=== PATIENT | male | born 1980 | race Caucasian/White ===

== ENCOUNTER 2020-01-31 00:41 | Emergency (ER) | payer OTHER, SELFPAY ==
--- NOTE | ~2020-01-31 | XR_ITS ---
EXAMINATION: XR foot RT min 3V EXAM DATE: 01/31/2020 01:43 INDICATION: No known recent injury provided at this time. Pain of the right foot. TECHNIQUE: Right foot dorsoplantar, lateral and oblique projections obtained and reviewed. There is no prior study for comparison. FINDINGS: Right metatarsal bones unremarkable. Mild hallux valgus. No evidence of metatarsal stress fracture. There are no acute fractures or dislocations identified. There is no subcutaneous gas. T he soft tissue is unremarkable. There are no radiopaque foreign bodies. IMPRESSION: Mild right hallux valgus. Reviewed, dictated and finalized at location A. IMPRESSION: Mild right hallux valgus.
--- NOTE | ~2020-01-31 | XR_ITS ---
EXAMINATION: XR knee RT min 4V EXAM DATE: 01/31/2020 01:44 INDICATION: Fall, right knee pain. TECHNIQUE: Right knee frontal, crosstable lateral, orthogonal oblique projections for interpretation . Comparison is made to prior examination from 09/29/2015. FINDINGS: No evidence osteochondral defect or joint body in the right knee joint. There is no suprap atellar joint effusion. There are no acute fractures or dislocations identified. There is no subcuta neous gas. The soft tissue unremarkable. There are no radiopaque foreign bodies. IMPRESSION: Unremarkable right knee exam. Reviewed, dictated and finalized at location A.
[2020-01-31 00:48] VITALS: BP 174/80; PULSE 76; RESP 18; TEMP 36.6; O2SAT 99
--- NOTE | 2020-01-31 01:14 | ED.WOUNDLAC ---
HPI - Wound/Laceration General Chief Complaint: Wound/Laceration Stated Complaint: rt knee injury; sores on feet Time Seen by Provider: 01/31/20 01:05 Source: patient Mode of arrival: ambulatory Limitations: no limitations History of Present Illness HPI narrative: This patient is a 39 year old male who presents for evaluation bilateral foot wounds. PAtient states last night he thinks he may have stepped on something. He reports he has small bumps to his feet. He has the most pain to right inner foot. He has history of cellulitis so he wanted to come get medication to prevent infection. He states his feet are swollen. He also reports 2 days he fell and he injured his right knee. He has been able to walk without difficulty. His last tetanus was 5 years ago. Related Data Home Medications Medication Instructions Recorded Confirmed cyclobenzaprine 10 mg PO DAILY 01/31/20 escitalopram oxalate 10 mg PO DAILY 01/31/20 omeprazole 01/31/20 omeprazole 40 mg PO DAILY 01/31/20 Allergies Allergy/AdvReac Type Severity Reaction Status Date / Time No Known Allergies Allergy Verified 01/31/20 00:49 Review of Systems Review of Systems: All systems reviewed & are unremarkable except as noted in HPI and below PMFSH Past Medical History Medical History (Updated 01/31/20 @ 03:17 by Erika Graham MD) Hypertension Seasonal allergies Surgical History Surgical History (Updated 01/31/20 @ 02:58 by Erika Graham MD) H/O knee surgery Social History Social History (Updated 01/31/20 @ 02:58 by Erika Graham MD) Smoking packs per day: 0.5 Smoking cigarettes per day: 10.0 Smoking status: Current every day smoker Exam Narrative: Exam Narrative: GENERAL: Well-appearing, well-nourished, and in no acute distress. morbidly obese HEAD: Normocephalic, atraumatic EYES: PERRLA and EOMI, conjunctiva clear without discharge THROAT:Mucous membranes moist, NECK: Supple, RESPIRATORY: No respiratory distress, Airway patent HEART: Regular rate and rhythm. No murmur heard. Normal peripheral pulses. . EXTREMITIES: No edema, normal strength with full range of motion. bilateral strong palpable pedal SKIN: Warm, dry, right foot with small red ulceration to 4th toes and mild erythema to medial foot, bilateral feet swelling NEURO: Alert and oriented x3. CN 2-12 grossly intact. No focal deficits. PSYCH: Normal mood and affect. Course Reevaluation(s) Reevaluation #1: I have discussed with patient the his wounds on his feet should be treated for local infection. I will give prescription of antibiotics to start if redness worsen. Date: 01/31/20 Time: 03:14 Vital Signs Vital signs: Vital Signs Temperature 98 F 01/31/20 00:48 Pulse Rate 76 01/31/20 00:48 Respiratory Rate 18 01/31/20 00:48 Blood Pressure 174/80 H 01/31/20 00:48 Pulse Oximetry 99 01/31/20 00:48 Temperature 98 F 01/31/20 00:48 Pulse Rate 58 L 01/31/20 02:38 Respiratory Rate 17 01/31/20 02:38 Blood Pressure 158/82 H 01/31/20 02:38 Pulse Oximetry 99 01/31/20 02:38 MDM - Wound/Laceration Imaging Data Radiologist's impression: right foot- no foreign body, no fracture right knee- no fracture. Discharge Plan Discharge Clinical Impression: Right knee sprain, Acute pain of right foot Patient Disposition: Home, Self-Care Condition: Stable Instructions: Antibiotic Form, Knee Sprain (ED), Acute Wounds (DC) Additional Instructions: Continue to perform local wound care to wounds on your feet. Take antibiotics if redness or swelling continues. Follow up with your primary care physician. Prescriptions: New cephalexin [Keflex] 500 mg capsule 500 mg PO Q8H 7 Days Qty: 21 RF: 0 No Action cyclobenzaprine 10 mg tablet 10 mg PO DAILY RF: 0 omeprazole 40 mg capsule,delayed release(DR/EC) RF: 0 omeprazole 40 mg capsule,delayed release(DR/EC) 40 mg PO DAILY RF: 0 escit
[2020-01-31 02:38] VITALS: BP 158/82; PULSE 58; RESP 17; O2SAT 99
== END 2020-01-31 03:31 | disposition home or self-care (01) ==
PROVIDERS: Emergency Provider General Practice; PCP Family Medicine
DX: S83.91XA Sprain of unspecified site of right knee, initial encounter (principal); M79.671 Pain in right foot; I10 Essential (primary) hypertension; F17.210 Nicotine dependence, cigarettes, uncomplicated; W19.XXXA Unspecified fall, initial encounter
CPT/HCPCS: 73564; 73630; 99284

== ENCOUNTER 2022-06-22 18:12 | Emergency (ER) | payer OTHER, SELFPAY ==
[2022-06-22 18:13] VITALS: BP 172/89; PULSE 82; RESP 16; TEMP 36.6; O2SAT 96
== END 2022-06-22 19:16 | disposition left against medical advice (07) ==
PROVIDERS: PCP Family Medicine
DX: K42.9 Umbilical hernia without obstruction or gangrene (principal)
CPT/HCPCS: 99199